=== PATIENT | male | born 1980 | race Caucasian/White ===

== ENCOUNTER 2017-07-05 14:37 | Emergency (ER) | payer MEDICARE ==
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
[2017-07-05 15:58] VITALS: BP 132/87; PULSE 106
[2017-07-05 16:02] VITALS: O2SAT 95
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
== END 2017-07-05 16:28 | disposition home or self-care (01) ==
LOC: ED 14:37
DX: S13.4XXA Sprain of ligaments of cervical spine, initial encounter (principal); M54.2 Cervicalgia; V89.2XXA Person injured in unspecified motor-vehicle accident, traffic, initial encounter; F95.2 Tourette's disorder
CPT/HCPCS: 72040; 99283

== ENCOUNTER 2018-02-15 09:15 | Day surgery (SDC) | payer MEDICARE ==
[2018-02-15] MEDS ORDERED: Xylocaine-Mpf 2% 5 Ml Vial IJ ONE (09:16)
[2018-02-15] MEDS ORDERED: DIPRIVAN 200 MG/20 ML IV ONE (09:16)
[2018-02-15] MEDS ORDERED: Depo-Medrol 40 MG/ML IM ONE (09:16)
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
[2018-02-15] MEDS ORDERED: Lactated Ringers 1,000 ML IV ONE (10:54)
== END 2018-02-15 10:23 | disposition home or self-care (01) ==
LOC: SDC-PAIN 09:15
PROVIDERS: ATTEND Psychiatry & Neurology Pain Medicine
DX: M47.816 Spondylosis without myelopathy or radiculopathy, lumbar region (principal)
CPT/HCPCS: 64493; 64494; 72020; 77003; J1030; J2704

== ENCOUNTER 2021-11-16 14:11 | Emergency (ER) | payer MEDICARE ==
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
[2021-11-16 15:34] VITALS: BP 118/62; PULSE 88; O2SAT 98
== END 2021-11-16 15:45 | disposition home or self-care (01) ==
LOC: ED 14:11
DX: M51.37 Other intervertebral disc degeneration, lumbosacral region (principal); M51.34 Other intervertebral disc degeneration, thoracic region; Z79.899 Other long term (current) drug therapy; Z79.891 Long term (current) use of opiate analgesic
CPT/HCPCS: 72128; 72131; 99282